=== PATIENT | male | born 1960 ===

== ENCOUNTER 2025-01-07 08:22 | Outpatient (AMB) | payer OTHER, SELFPAY ==
--- NOTE | 2025-01-07 07:41 | A.OFFPC_ITS ---
Vital Signs 01/07/25 08:28 Height 5 ft 10.67 in Weight 207 lb BMI 29.1 BP 152/90 H Blood Pressure Location Rt brachial Position Sitting Respiration 18 Pulse 61 Pulse Source Pulse Oximeter Temp 97.7 F Temp Source Temporal Artery Scan Pulse Oximetry (%) 97 Oxygen Delivery Method Room Air Intake Visit Reasons: New PT Staple Side Laster Required: No Accompanied by: Self / Same As Patient Allergies No Known Allergies Allergy (Verified 01/07/25 08:06) Tobacco use date assessed: 01/07/25 Dental Screening Dental Screen Date: 01/07/25 Did you have a dental visit in the last 12 months?: Yes Did you have a dental problem in the last 6 months where you did not have access to dental care?: No Was dental information given to patient?: Patient has dentist HPI HPI Comments History of Present Illness Details The patient is a 64-year-old male presenting for a new patient visit, with a concern for an elevated blood pressure reading. His blood pressure was 152/90 mmHg upon initial check. He admits to a recent increase in salt intake over the past year. The patient has a history of high cholesterol, with lab results from 2019 showing very high total and LDL cholesterol. He has a past history of tendinitis in his arm, which resolved with physical therapy approximately five or six years ago. He denies any other medical conditions. The patient reports waking twice a night to urinate but denies other urinary symptoms such as difficulty initiating urination. He denies chest pain, palpitations, or leg swelling. He has never had a colonoscopy. Medical History: - Hyperlipidemia, noted in 2019. - Tendinitis, resolved with physical the rapy 5-6 years ago. Surgical History: - No surgical history. Medications: The patient is not taking any medications. Family History: - Father: , had late-stage demen tia. - Mother: Alive and well. - Grandparents: History of strokes, canc er, and heart attacks. - : one year ago due to con gestive heart failure. - Denies family history of heart disease , diabetes, or cancers when initially asked. Diagnostic Results: - Labs: Cholesterol from 2020 was noted to be very high, with high bad cholesterol. Social History: - Substance Use: Denies ever smoking tob acco or using alcohol, marijuana, heroin, or cocaine. 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 - Living Situation/Social Support: He is the primary caregiver for his 22-year-old daughter with special needs. - Mood: Reports his mood is generally go od, though he sometimes feels tired from his caregiving responsibilities. - Diet: Reports a diet heavy in salt ove r the last year. - Exercise: Uses a treadmill two to thre e times a week. [facility] Medical History (Updated 01/07/25 @ 09:38 by Nasir Silva MD) Annual physical exam Hyperlipidemia Hypertension Social History Housing: House Patient Tobacco Use Status: Never used Tobacco e-Cigarette/Vaping Use: Never Used service: No Current occupational status: retired Cognitive needs: No Hearing needs: No Vision needs: No Questionnaire PHQ-9 Over the last 2 weeks, how often have you been bothered by any of the following problems? 1. Little interest or pleasure in doing things: not at all 2. Feeling down, depressed, or hopeless: not at all 3. Trouble falling or staying asleep, or sleeping too much: not at all 4. Feeling tired or having little energy: not at all 5. Poor appetite or overeating: not at all 6. Feeling bad about yourself - or that you are a failure or have let yourself or your family down: not at all 7. Trouble concentrating on things, such as reading the newspaper or watching television: not at all 8. Moving or speaking so slowly that other people could have noticed. Or the opposite - being so fidgety or restless that you have been moving around a lot more than usual: not at all 9. Thoughts that you would be better off or of hurting yourself in some way: not at all Total score: 0 Depression Screening Interpretation: Negative Depression Screening Done: Yes 00604 - PHQ-9 Billing: Yes Source: Developed by Drs. Kev Ramirez, Francesca Betancourt, Joesph Thompson and colleagues, with an educational margie from [employer]. Thrive Questionnaire Date Thrive assessed: 01/07/25 I am a: Patient What is your living situation today?: I have a steady place to live Within the past 12 months, did the food you bought not last and you didn't have the money to get more?: Never true Within the past 12 months, did you worry whether your food would run out before you got money to buy more?: Never true Do you have trouble paying for medicines?: No Do you have trouble getting transportation to medical appointments?: No Do you have trouble paying your heating and electricity bill?: No Do you have trouble taking care of your child, family member or friend?: No Do you have trouble with day-to-day activities such as bathing, preparing meals, shopping, managing finances, etc.?: No Are you currently unemployed and looking for a job?: No Are you interested in more education?: No THRIVE Score: 0 AUDIT C Alcohol Use Questionnaire (AUDIT-C) 1. How often do you have a drink containing alcohol?: Never 3. How often do you have six or more drinks on one occasion?: Never Total Score: 0 Score Reviewed/Action Taken: Yes LEROY-7 AMB Questionnaire LEROY-7 Date LEROY - 7 assessed: 01/07/25 Feeling nervous, anxious, or on edge: 0 = Not at all Not being able to stop or control worryin = Not at all Worrying too much about different things: 0 = Not at all Trouble relaxin = Not at all Being so restless that it is hard to sit still: 0 = Not at all Becoming easily annoyed or irritable: 0 = Not at all Feeling afraid as if something awful might happen: 0 = Not at all Total LEROY-7 score (0-4 normal; 5-9 mild; 10-14 moderate; 15-21 severe): 0 Source: Developed by Drs. Kev Ramirez, Francesca Betancourt, Joesph Thompson and colleagues, with an educational margie from [employer]. LEROY-7 Assessment Billing LEROY-7 Assessment Tool: LEROY-7 Assessment 42236 Review of Systems Narrative - Constitutional: Reports feeling tired due to caregiving responsibilities. - Cardiovascular: Denies chest pain, palpitations, or leg swelling. - Genitourinary: Reports nocturia, waking up twice a night to urinate. Denies difficulty initiating urination or feeling of incomplete bladder emptying. - Allergic/Immunologic: Reports possible seasonal allergies in the spring. - Musculoskeletal: Denies joint pains. All systems reviewed & are unremarkable except as reviewed in HPI and above Physical exam (Primary Care) Vital Signs: Last Vital Signs Temp 97.7 F 01/07/25 08:28 Pulse 61 01/07/25 08:28 Resp 18 01/07/25 08:28 BP 152/90 H 01/07/25 08:28 Pulse Ox 97 01/07/25 08:28 Oxygen Delivery Method Room Air 01/07/25 08:28 BMI result Body Mass Index 29.1 Tobacco/Smoking Status: Tobacco use Status Tobacco use date assessed 01/07/25 01/07/25 08:08 Patient Tobacco Use Status Never used Tobacco 01/07/25 08:31 e-Cigarette/Vaping Use Never Used 01/07/25 08:31 PHQ-9: PHQ-9 Score PHQ-9: Total score 0 01/07/25 08:31 Depression Screening Interpretation: Negative Thrive Assessment: Date of Thrive Assessment Date Thrive assessed 01/07/25 01/07/25 07:42 Narrative General: Alert and oriented, Well nourished, No acute distress. Eye: Pupils are equal, round and reactive to light, Intact accommodation, Extraocular movements are intact, Normal conjunctiva, Vision unchanged. HENT: Normocephalic, Atraumatic, Tympanic membranes are clear, Normal hearing, Oral mucosa is moist, No pharyngeal erythema, Ear canals patent. Respiratory: Lungs CTA bilaterally, No wheeze, Respirations are non-labored. Cardiovascular: Regular rate, Regular rhythm, S1 auscultated, S2 auscultated, No murmur, Good pulses equal in all extremities, Normal peripheral perfusion, No edema. Gastrointestinal: Soft, Non-tender, Non-distended, Normal bowel sounds, No organomegaly. Musculoskeletal: Normal range of motion, Normal strength, No tenderness, No swelling, No deformity, Normal gait. Integumentary: Warm, Dry, [place], Intact. Neurologic: Alert, Oriented, Normal sensory, Normal motor function, No focal defects, Cranial Nerves II-XII are grossly intact, Normal deep tendon reflexes. Psychiatric: Cooperative, Appropriate mood & affect, Normal judgment. Coding Level of Care Code New Pt Level 4 (44692) New Pt Prev Care >65yr (67486) Diagnoses Hypertension, unspecified type I10 Hypertension type: unspecified Hyperlipidemia, unspecified hyperlipidemia type E78.5 Hyperlipidemia type: unspecified Annual physical exam Z00.00 Additional Codes PHQ-9 - 73734 - PHQ-9 Billing: Yes ([id number]) LEROY-7 Assessment Billing - LEROY-7 Assessment Tool: LEROY-7 Assessment 29889 ([id number]) Comment 32130-01 Assessment & Plan Assessment & Plan (1) Hypertension: Comment: - The patient's blood pressure is elevated at 164/94 mmHg. - This may be multifactorial, including anxiety from the visit and high dietary salt intake. - The plan is to defer antihypertensive medication at this time. - The patient is instructed to significantly reduce salt intake and to begin home blood pressure monitoring twice daily. - He will keep a log of his readings and return for a follow-up visit in two we eks. - If his blood pressure remains elevated at that time, medication will be initiated. Code(s): I10 - Essential (primary) hypertension Category: Medical Qualifiers: Hypertension type: unspecified Qualified Code(s): I10 - Essential (primary) hypertension (2) Hyperlipidemia: Comment: - The patient has a history of high cholesterol and is considered high risk. - The plan is to check a baseline lipid panel. - The patient was counseled on the importance of lifestyle modifications, including a healthy diet and increased exercise. - We will review lab results at the two-week follow-up and discuss the potential need for medication. Code(s): E78.5 - Hyperlipidemia, unspecified Category: Medical Qualifiers: Hyperlipidemia type: unspecified Qualified Code(s): E78.5 - Hyperlipidemia, unspecified (3) Annual physical exam: Comment: - The patient is establishing care. - He is overdue for colon cancer screening and has never had a colonoscopy. - A referral for a colonoscopy will be placed. - A comprehensive baseline lab panel, including electrolytes, CBC, cholesterol, glucose, thyroid function, vitamin D, HIV, hepatitis, and syphilis will be ordered. - At the patient's request and after a discussion about current screening guidelines, a PSA test will also be ordered due to his symptoms of nocturia. - The patient was encouraged to increase his exercise frequency. Code(s): Z00.00 - Encounter for general adult medical examination without abnormal findings Category: Medical Plan: Health Maintenance: - Ordered baseline labs including electrolytes, CBC, cholesterol, sugars, thyroid, vitamin D, HIV, hepatitis, and syphilis. - Referred for screening colonoscopy as the patient is overdue. - Ordered a PSA test for prostate cancer screening as requested by the patient. - Lifestyle counseling provided: Encouraged increased physical activity and a low-salt diet. Patient was informed and verbally consented to the use of an ambient scribe for clinic note documentation during this visit. Plan I met with this 64-year-old male for his first visit. We discussed his elevated in-office blood pressure readings. I explained that we would not start medication immediately, but would instead begin with lifestyle changes, including a low-salt diet, and home blood pressure monitoring. We also reviewed his history of high cholesterol, and I ordered a comprehensive set of baseline labs, including a lipid panel, which he will have drawn today. I informed the patient that he is overdue for colon cancer screening and that my office would place a referral for a colonoscopy. We discussed his request for a PSA test; I explained it is no longer a routine screening but agreed to order it given his nocturia. I reassured him that more invasive cardiac testing is not indicated without symptoms. The plan is to follow up in two weeks to review his home blood pressure log and all lab results to guide further management. Orders: Orders Hemoglobin A1c Today Z76.89 - Persons encountering health services in other specified circumstances Hepatitis A,B,C Profile Today Z76.89 - Persons encountering health services in other specified circumstances TSH reflex Free T4 Today Z76.89 - Persons encountering health services in other specified circumstances PSA,Total (Free>4and<10) Today Z76.89 - Persons encountering health services in other specified circumstances Microalbumin, Random (w Creat) Today Z76.89 - Persons encountering health services in other specified circumstances Complete Blood Count Auto Diff Today Z76.89 - Persons encountering health services in other specified circumstances Comprehensive Met. Panel Today Z76.89 - Persons encountering health services in other specified circumstances HIV Ab/Ag Today Z76.89 - Persons encountering health services in other specified circumstances Lipid Panel Today Z76.89 - Persons encountering health services in other specified circumstances Syphilis Screen Today Z76.89 - Persons encountering health services in other specified circumstances Vitamin D 25-OH Total Today Z76.89 - Persons encountering health services in other specified circumstances Referrals Open Access Screening Colonoscopy Referral Z12.11 - Encounter for screening for malignant neoplasm of colon Patient Instructions: - Reduce the amount of salt in your diet. - Check your blood pressure at home twice a day (morning and evening) while you are relaxed and seated. - Write down your blood pressure readings on a piece of paper and bring it with you to your next visit. - Go to the lab across the taylor from the clinic today to have your blood drawn. - You will be contacted by our hospital to schedule your colonoscopy. - Try to increase your physical activity and exercise more often than two or three times a week. - Schedule a follow-up appointment for two weeks from now to discuss your blood pressure log and lab results.
[2025-01-07 08:28] VITALS: BP 152/90; PULSE 61; RESP 18; TEMP 36.5; O2SAT 97; BMI 29.1
--- OUTSIDE RECORDS SUMMARY | 2025-01-07 08:45 | XMS_ITS | Patient Health Record ---
Author Organization [facility] Marvin gurwinder Rea Address [address] [place] [address] Care Team Providers Care Curatorial Assistant Name Role Phone Fredi Ruiz MD Primary Care Provider Unavailab Zakia Velasquez Unavailable [phone] Reason For Referral No Information Medications Medication SIG (Take, Route, Frequency, Duration) Notes Start Date End Date Status Cephalexin 500 MG 1 tablet Orally Twic e a day; Duration: 10 day(s) Active tylenol PRN Active Baby Aspirin every other day A ctive Social History Tobacco Use: Social History Observation Description Date Details (start date - stop date) Never Smoker NA - NA Tobacco Use/Smoking Question Answer Notes Are you a: nonsmoker Additional Findings: Tobacco Non-User Current no n-smoker Alcohol Screen Question Answer Notes Did you have a drink containing alcohol in the p ast year? No Points 0 Interpretation Negative Plan Of Treatment No Information Insurance Providers Payer Name Payer Address Payer Phone Subscriber Number Group Number Insured Name Patient Relationship to Insured Coverage Start Date Coverage End Date [facility] [address] [place] [id number] Derian Earl Self - patient is the insured Medical (General) History Medical History History ICD Code Measles Mumps Chicken pox Basal cell carcinoma on back of neck
== END 2025-01-07 08:52 | disposition home or self-care (01) ==
LOC: HO.HMCHD 08:22
PROVIDERS: PCP Student in an Organized Health Care Education/Training Program; Visit Provider Student in an Organized Health Care Education/Training Program
DX: Z00.00 Encounter for general adult medical examination without abnormal findings (principal); I10 Essential (primary) hypertension; E78.5 Hyperlipidemia, unspecified

== ENCOUNTER → 2025-01-07 08:22 | Outpatient (BNVA) | payer OTHER, SELFPAY | PROVIDERS: PCP Student in an Organized Health Care Education/Training Program; Visit Provider Student in an Organized Health Care Education/Training Program | DX: Z00.00 Encounter for general adult medical examination without abnormal findings (principal); I10 Essential (primary) hypertension; E78.5 Hyperlipidemia, unspecified; Z13.31 Encounter for screening for depression; Z13.39 Encounter for screening examination for other mental health and behavioral disorders | CPT/HCPCS: 96127 ==

== ENCOUNTER 2025-01-07 08:54 | Outpatient (REF) | payer OTHER, SELFPAY ==
[2025-01-07 10:35] LABS: MANUAL DIFF FLAG NO
[2025-01-07 10:38] LABS: Hematocrit 46.6 % (42.0-52.0); Hemoglobin 15.3 g/dl (14.0-18.0); Imm Gran Abs Auto 0.03 X10*3/uL (0.00-0.03); Imm Gran Pct Auto 0.4 % (0.0-0.4); Lymphocytes Absolute Auto 2.0 X10*3/uL (1.2-4.9); Mean Corpuscular HGB Conc 32.8 g/dl (31.0-36.0); Mean Corpuscular Hemoglobin 28.7 pg (27.0-33.0); Mean Corpuscular Volume 87.3 fL (80.0-98.0); NRBC Abs Auto 0.000 X10*3/uL (0.0-0.012); NRBC Pct Auto 0.0 /100WBC (0.0-0.2); Platelet Count 228 X10*3/uL (160-400); Red Blood Count 5.34 X10*6/uL (4.60-5.80); White Blood Count 7.1 X10*3/uL (4.8-10.8)
[2025-01-07 10:57] LABS: Alanine Aminotransferase 30 U/L (0-40); Albumin Level 4.5 g/dL (3.5-5.0); Alkaline Phosphatase 72 U/L (39-117); Anion Gap 13 (12-20); Aspartate Amino Transferase 28 U/L (5-37); Blood Urea Nitrogen 15 mg/dL (9-16); Calcium 9.2 mg/dL (8.4-10.2); Carbon Dioxide 30 mmol/L (22-29); Chloride 103 mmol/L (96-108); Cholesterol 315 mg/dL (<200); Estimated Glomerular Filt Rate > 60; HDL Cholesterol 47 mg/dL (>40); Potassium 4.7 mmol/L (3.3-5.1); Sodium 141 mmol/L (135-145); Total Protein 7.4 g/dL (6.5-8.0); Triglycerides 338 mg/dL (<150)
[2025-01-07 11:13] LABS: PSA,Total (Free>4and<10) 0.84 ng/mL (0.00-4.00)
[2025-01-07 11:17] LABS: Syphilis Screen Nonreactive (Nonreactive)
[2025-01-07 11:18] LABS: HBS Num1 0.00 mIU/mL (0-7.99); HBc Num1 0.05 S/CO (0.00-0.79); HBsAGNum1 0.40 S/CO (0.00-0.99); HIV Num 1 0.05 S/CO (0.00-0.99); Hepatitis A Antibody IgM 0.20 Index (0-0.79); Hepatitis B Surface Antigen Negative (Negative); ~HepC Num1 0.09 S/CO (0.00-0.79); ~Hepatitis A Antibody IgM Nonreactive (Nonreactive); ~Hepatitis B Surface Antibody NONREACTIVE (Nonreactive); ~Hepatitis C Antibody Nonreactive (Nonreactive)
[2025-01-07 11:25] LABS: Microalbum/Creatinine Ratio Ur 6.4 ug/mg cr (<30)
== END 2025-01-07 08:55 | disposition home or self-care (01) ==
LOC: HO.10HDL 08:54
PROVIDERS: Visit Provider Student in an Organized Health Care Education/Training Program
DX: Z11.4 Encounter for screening for human immunodeficiency virus [HIV] (principal); Z76.89 Persons encountering health services in other specified circumstances; Z20.2 Contact with and (suspected) exposure to infections with a predominantly sexual mode of transmission; Z12.5 Encounter for screening for malignant neoplasm of prostate; Z13.6 Encounter for screening for cardiovascular disorders; Z13.1 Encounter for screening for diabetes mellitus; Z13.21 Encounter for screening for nutritional disorder; Z13.29 Encounter for screening for other suspected endocrine disorder
CPT/HCPCS: 36415; 80053; 80061; 82043; 82306; 82570; 83036; 84153; 84443; 85025; 86704; 86706; 86709; 86780; 86803; 87340; 87389

== ENCOUNTER 2025-01-21 08:05 | Outpatient (AMB) | payer OTHER, SELFPAY ==
--- NOTE | 2025-01-21 08:11 | A.OFFPC_ITS ---
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 The patient was monitoring blood pressures at home, which have remained elevated, with readings in the 160s and 140s, and sometimes in the 130s. The patient reports being non-adherent with blood pressure monitoring as instructed. Recent lab work revealed significantly elevated cholesterol, with a total cholesterol of 315, LDL of 201, and triglycerides of 338. Other lab results were normal, including blood counts, electrolytes, kidney function, and an A1c of 5.6. The patient has never been on medications before and expresses fear of starting them, particularly statins, due to concern for side effects. For exercise, the patient has been using a treadmill every day since the last visit. Medical History: - Hypertension - Hypercholesterolemia - Hypertriglyceridemia Medications: - The patient reports never having been on medications previously. Diagnostic Results: - Labs: Recent blood work revealed a tot al cholesterol of 315, an LDL cholesterol of 201, and triglycerides of 338. - Labs: The patient's A1c was 5.6. - Labs: Blood counts, electrolytes, and kidney function were normal. - Tests and Diagnostics: Home blood pres sure readings ranged from the 130s to the 160s. Social History - Exercise: The patient reports using a treadmill every day. - Nutrition: The patient was counseled t o avoid processed foods, high carbohydrates, high fats, and junk food, and was advised to research the DASH diet. - Social Support: The patient lives with daughters and has a sister in [place]. [facility] Medical History (Updated 01/21/25 @ 08:38 by Nasir Silva MD) Annual physical exam Hyperlipidemia Hypertension Social History Housing: House Patient Tobacco Use Status: Never used Tobacco e-Cigarette/Vaping Use: Never Used service: No Current occupational status: retired Cognitive needs: No Hearing needs: No Vision needs: No Questionnaire Thrive Questionnaire Date Thrive assessed: 01/07/25 LEROY-7 AMB Questionnaire LEROY-7 Date LEROY - 7 assessed: 01/07/25 Source: Developed by Drs. Kev Ramirez, Francesca Betancourt, Joesph Thompson and colleagues, with an educational margie from [employer]. Review of Systems Narrative Review of Systems - Psychiatric: Reports fear and anxiety regarding starting new medications. All systems reviewed & are unremarkable except as reviewed in HPI and above Physical exam (Primary Care) Vital Signs: Last Vital Signs Temp 97.8 F 01/21/25 08:13 Pulse 53 01/21/25 08:13 Resp 18 01/21/25 08:13 BP 164/88 H 01/21/25 08:13 Pulse Ox 97 01/21/25 08:13 Oxygen Delivery Method Room Air 01/21/25 08:13 Tobacco/Smoking Status: Tobacco use Status Tobacco use date assessed 01/07/25 01/21/25 08:12 Patient Tobacco Use Status Never used Tobacco 01/21/25 08:12 e-Cigarette/Vaping Use Never Used 01/21/25 08:12 Thrive Assessment: Date of Thrive Assessment Date Thrive assessed 01/07/25 01/21/25 08:12 Narrative Physical Exam General: +Alert and oriented, Well nourished, No acute distress. Eye: Pupils are equal, round and reactive to light, Intact accommodation, Extraocular movements are intact, Normal conjunctiva, Vision unchanged. HENT: Normocephalic, Atraumatic, Tympanic membranes are clear, Normal hearing, Oral mucosa is moist, No pharyngeal erythema, Ear canals patent. Respiratory: Lungs CTA bilaterally, No wheeze, Respirations are non-labored. Cardiovascular: Regular rate, Regular rhythm, S1 auscultated, S2 auscultated, No murmur, Good pulses equal in all extremities, Normal peripheral perfusion, No edema. Gastrointestinal: Soft, Non-tender, Non-distended, Normal bowel sounds, No organomegaly. Musculoskeletal: Normal range of motion, Normal strength, No tenderness, No swelling, No deformity, Normal gait. Integumentary: Warm, Dry, [place], Intact. Neurologic: Alert, Oriented, Normal sensory, Normal motor function, No focal defects, Cranial Nerves II-XII are grossly intact, Normal deep tendon reflexes. Psychiatric: Cooperative, Appropriate mood & affect, Normal judgment. Coding Level of Care Code Est Pt Level 4 (13243) Complex EM visit Add On G2211 Diagnoses Hypertension, unspecified type I10 Hypertension type: unspecified Hyperlipidemia, unspecified hyperlipidemia type E78.5 Hyperlipidemia type: unspecified Assessment & Plan Assessment & Plan (1) Hypertension: Comment: - The patient's blood pressure remains elevated, with home readings up to the 160s, contributing to increased cardiovascular risk. - The plan is to initiate amlodipine 2.5 mg daily. - The patient is to continue home blood pressure monitoring once or twice a week and follow up in three months Code(s): I10 - Essential (primary) hypertension Category: Medical Qualifiers: Hypertension type: unspecified Qualified Code(s): I10 - Essential (primary) hypertension (2) Hyperlipidemia: Comment: - The patient has severely elevated cholesterol and triglycerides (total cholesterol 315, LDL 201, triglycerides 338), which, combined with hypertension, results in a 15-20% risk of a heart attack or stroke. - The plan is to start atorvastatin 20 mg at night. - The patient's concerns about statin side effects were addressed by discussing the evidence-based benefits of risk reduction. - Cholesterol will be rechecked in 6 to 12 months. Code(s): E78.5 - Hyperlipidemia, unspecified Category: Medical Qualifiers: Hyperlipidemia type: unspecified Qualified Code(s): E78.5 - Hyperlipidemia, unspecified Plan: Health Maintenance: - Cardiovascular Risk: The patient's combined hypertension and hyperlipidemia place the patient at an estimated 15-20% risk of a heart attack or stroke. - Risk Reduction: It was discussed that statin therapy can reduce the risk of all cardiovascular events by 20-30% and strokes by 22-29%. - Diet: Advised to cut out unhealthy foods, including processed items, high-fat and high-carbohydrate foods, and salt. The DASH diet was recommended. - Exercise: Encouraged to continue daily activity, such as using a treadmill. Patient was informed and verbally consented to the use of an ambient scribe for clinic note documentation during this visit. Plan I discussed with the patient the serious nature of the recent lab results, which showed severe hyperlipidemia, and the persistently elevated blood pressure readings. I explained that this combination of factors results in an estimated 15-20% risk of having a heart attack or stroke. I recommended initiating treatment with amlodipine 2.5 mg for blood pressure and atorvastatin 20 mg for cholesterol. The patient expressed significant fear and hesitation about starting medications, citing concerns about side effects found through online research. I addressed these concerns by explaining the evidence-based benefits of statins, quoting research that shows a 20-30% reduction in cardiovascular events, and emphasized that they are very safe drugs. I clarified that while all medications have potential side effects, such as muscle pains with statins, the benefit of preventing a catastrophic event like a heart attack or stroke far outweighs the risk. I emphasized that taking these medications does not replace the need for lifestyle changes. I counseled the patient to continue exercising, improve diet by avoiding unhealthy foods, and to research the DASH diet. We agreed on a plan to monitor blood pressure at home and to follow up in three months. Medications: New atorvastatin (Lipitor) 20 mg PO BEDTIME 90 tabs 0RF amlodipine 2.5 mg PO DAILY 90 tabs 0RF Patient Instructions: - Start taking two new medications for your health and safety. - Take one Amlodipine 2.5 mg pill each day for your blood pressure. You can take this at any time of day that works for you. - Take one Atorvastatin 20 mg pill each night for your cholesterol. - Continue to check your blood pressure at home once or twice a week and write down the numbers. - Continue to exercise every day, for example, by using your treadmill. - Work on improving your diet by avoiding salty foods, junk food, processed foods, and foods that are high in fat and carbohydrates. You can research the 'DASH' diet, which is designed to help lower blood pressure. - Schedule a follow-up appointment to see me again in three months.
[2025-01-21 08:13] VITALS: BP 164/88; PULSE 53; RESP 18; TEMP 36.6; O2SAT 97
== END 2025-01-21 08:35 | disposition home or self-care (01) ==
LOC: HO.HMCHD 08:05
PROVIDERS: PCP Student in an Organized Health Care Education/Training Program; Visit Provider Student in an Organized Health Care Education/Training Program
DX: I10 Essential (primary) hypertension (principal); E78.5 Hyperlipidemia, unspecified